=== PATIENT | male | born 1950 | race Two or more races ===

== ENCOUNTER 2024-01-01 07:38 | Day surgery (SDC) | payer OTHER ==
[~2024-01-01] VITALS: Ht 172.7 cm; Wt 109.8 kg
[~2024-01-01 07:38] MED LIST: AMIO200T33 PO; APIX5TAB PO; METO25TA36 PO; OMEP20TA PO; POM PO
[2024-01-01] MEDS ORDERED: SIMV40TA18 PO (08:52)
[2024-01-01] MEDS: diphenhdrAMINE HCL 50 MG/1 ML VL ONE (10:10)
[2024-01-01] MEDS ORDERED: MIDAZOLAM HCL 2MG/2ML 2ml VIAL (1mg/ml) ONE (10:11)
[2024-01-01] MEDS: LIDOCAINE VISCOUS 2% 15ML UD PO ONE (10:15)
[2024-01-01] MEDS: MIDAZOLAM HCL 2MG/2ML 2ml VIAL (1mg/ml) IV ONE (10:20)
[2024-01-01] MEDS: fentaNYL CITRATE 100 MCG/2 ML VL IV ONE (10:23)
[2024-01-01 10:34] VITALS: BP 138/85; PULSE 87; RESP 12; O2SAT 95
[2024-01-01 10:49] VITALS: BP 121/78; PULSE 76; RESP 12; O2SAT 94
[2024-01-01 11:04] VITALS: BP 131/80; PULSE 74; RESP 12; O2SAT 93
[2024-01-01 11:18] VITALS: BP 130/85; PULSE 69; RESP 12; O2SAT 95
[2024-01-01 11:34] VITALS: BP 145/85; PULSE 72; RESP 20; O2SAT 92
== END 2024-01-01 11:40 | disposition home or self-care (01) ==
LOC: CATH 07:38
PROVIDERS: ATTEND Internal Medicine
DX: I48.91 Unspecified atrial fibrillation (principal); Z88.6 Allergy status to analgesic agent; Z87.891 Personal history of nicotine dependence
CPT/HCPCS: 93312; J1200; J2250; J3010; J7030; 99152